=== PATIENT | female | born 1980 | race Caucasian/White ===

== ENCOUNTER 2016-03-30 15:51 | Emergency (ER) | payer MEDICAID, OTHER ==
[~2016-03-30] VITALS: Ht 165.1 cm; Wt 154.2 kg
[2016-03-30 19:48] VITALS: BP 146/94
[2016-03-30] MEDS ORDERED: KETOROLAC TROMETH 60MG/2ML VIAL IM ONE (20:15)
== END 2016-03-30 20:41 | disposition home or self-care (01) ==
LOC: ER 16:04
DX: S39.012A Strain of muscle, fascia and tendon of lower back, initial encounter (principal); G89.29 Other chronic pain; Z88.8 Allergy status to other drugs, medicaments and biological substances; Z88.6 Allergy status to analgesic agent; X58.XXXA Exposure to other specified factors, initial encounter; Y93.89 Activity, other specified; Y99.8 Other external cause status; Y92.89 Other specified places as the place of occurrence of the external cause
CPT/HCPCS: 96372; 99283; J1885

== ENCOUNTER 2016-07-09 07:55 | Emergency (ER) | payer MEDICAID ==
[~2016-07-09] VITALS: Ht 165.1 cm; Wt 154.2 kg
[2016-07-09 08:42] VITALS: BP 137/60
== END 2016-07-09 09:13 | disposition home or self-care (01) ==
LOC: ER 07:56
DX: S16.1XXA Strain of muscle, fascia and tendon at neck level, initial encounter (principal); S60.212A Contusion of left wrist, initial encounter; M19.90 Unspecified osteoarthritis, unspecified site; E66.9 Obesity, unspecified; Z68.43 Body mass index [BMI] 50.0-59.9, adult; I10 Essential (primary) hypertension; Z88.6 Allergy status to analgesic agent; Z88.8 Allergy status to other drugs, medicaments and biological substances; W01.0XXA Fall on same level from slipping, tripping and stumbling without subsequent striking against object, initial encounter; Y93.89 Activity, other specified; Y99.8 Other external cause status; Y92.89 Other specified places as the place of occurrence of the external cause